=== PATIENT | female | born 1975 | race Caucasian/White ===

== ENCOUNTER 2021-01-01 14:05 | Emergency (ER) | payer BC, OTHER ==
--- NOTE | 2021-01-01 15:11 | EDM.PDOC ---
ED HPI GENERAL MEDICAL PROBLEM - General Chief Complaint: Respiratory Problem Stated Complaint: Covid symptoms Time Seen by Provider: 01/01/21 14:10 Source of Information: Reports: Patient History Limitations: Reports: No Limitations - History of Present Illness INITIAL COMMENTS - FREE TEXT/NARRATIVE: Patient presented to the ED because of of cough and cold, dyspnea since she was diagnosed with Covid. Her oxygen Sat was 95 % on RA but her primary provider sent her to the ED to be tested for PE. - Related Data Allergies Allergy/AdvReac Type Severity Reaction Status Date / Time No Known Allergies Allergy Verified 01/01/21 14:21 Home Meds: Home Meds Azithromycin [Zithromax] 500 mg PO DAILY #5 tab 01/01/21 [Rx] Escitalopram [Lexapro] 10 mg PO DAILY 01/01/21 [History] Lisdexamfetamine [Vyvanse] 30 mg PO DAILY 01/01/21 [History] Naproxen 500 mg PO BID #15 tablet 01/01/21 [Rx] buPROPion HCL [Bupropion Xl] 300 mg PO DAILY 01/01/21 [History] hydroCHLOROthiazide [Hydrochlorothiazide] 25 mg PO DAILY 01/01/21 [History] ED ROS GENERAL - Review of Systems Review Of Systems: See Below Constitutional: Reports: No Symptoms HEENT: Reports: No Symptoms Respiratory: Reports: Shortness of Breath, Cough Cardiovascular: Reports: No Symptoms Endocrine: Reports: No Symptoms GI/Abdominal: Reports: No Symptoms : Reports: No Symptoms Musculoskeletal: Reports: No Symptoms Skin: Reports: No Symptoms Neurological: Reports: No Symptoms Psychiatric: Reports: No Symptoms Hematologic/Lymphatic: Reports: No Symptoms ED EXAM, GENERAL - Physical Exam Exam: See Below Exam Limited By: No Limitations General Appearance: Alert, No Apparent Distress Eye Exam: Bilateral Eye: PERRL Ears: Normal External Exam, Normal Canal, Normal TMs Nose: Normal Inspection, Normal Mucosa, No Blood Throat/Mouth: Normal Inspection, Normal Lips, Normal Teeth, Normal Oropharynx, Normal Voice Head: Atraumatic, Normocephalic Neck: Normal Inspection, Supple, Non-Tender, Full Range of Motion Respiratory/Chest: No Respiratory Distress, Lungs Clear, Normal Breath Sounds, No Accessory Muscle Use, Chest Non-Tender Cardiovascular: Normal Peripheral Pulses, Regular Rate, Rhythm, No Edema, No Gallop, No JVD, No Murmur, No Rub GI/Abdominal: Normal Bowel Sounds, Soft, Non-Tender, No Organomegaly, No Distention, No Abnormal Bruit Back Exam: Normal Inspection, Full Range of Motion Neurological: Alert, Oriented, CN II-XII Intact, Normal Cognition Psychiatric: Normal Affect, Normal Mood Skin Exam: Warm Course - Vital Signs Text/Narrative:: Lab/CXR result was reviewed and discussed with patient Last Recorded V/S: Last Vital Signs Temp 36.6 C 01/01/21 14:05 Pulse 78 01/01/21 15:38 Resp 18 01/01/21 15:38 BP 102/60 01/01/21 15:38 Pulse Ox 97 01/01/21 15:38 - Orders/Labs/Meds Labs: Laboratory Tests 01/01/21 01/01/21 01/01/21 Range/Units 14:35 14:35 14:35 WBC 4.4 (3.0-10.3) x10-3/uL RBC 4.33 (3.60-5.20) x10(6)uL Hgb 12.3 (11.4-15.5) g/dL Hct 38.3 (34.2-48.2) % MCV 88.4 (76.7-100.5) fL MCH 28.4 (23.9-33.9) pg MCHC 32.1 (31.9-34.8) g/dL RDW 12.7 (12.3-16.5) % Plt Count 214 (151-488) x10(3)uL MPV 7.2 (7.1-12.4) fL Neut % (Auto) 74.3 (30.8-76.2) % Lymph % (Auto) 14.6 L (18.4-52.1) % [place] % (Auto) 10.7 (4.4-15.7) % Eos % (Auto) 0.2 L (0.6-8.1) % Baso % (Auto) 0.2 (0.2-1.5) % Neut # (Auto) 3.3 (1.5-6.3) x10-3/uL Lymph # (Auto) 0.6 L (1.0-4.4) x10-3/uL [place] # (Auto) 0.5 (0.3-1.0) x10-3/uL Eos # (Auto) 0.0 (0.0-0.8) x10-3/uL Baso # (Auto) 0.0 (0.0-0.1) x10-3/uL D-Dimer, Quantitative 0.43 (0.0-0.59) mg/LFEU Sodium (135-145) mmol/L Potassium (3.5-5.3) mmol/L Chloride (100-110) mmol/L Carbon Dioxide (21-32) mmol/L BUN (7-18) mg/dL Creatinine (0.55-1.02) mg/dL Est Cr Clr Drug Dosing mL/min Estimated GFR (MDRD) (>60) BUN/Creatinine Ratio (9-20) Glucose (80-116) mg/dL Calcium (8.6-10.2) mg/dL Total Bilirubin (0.1-1.3) mg/dL AST (5-25) IU/L ALT (12-36) U/L Alkaline Phosphatase (56-112) IU/L Troponin I 24.2 (4.0-60.3) pg/mL NT-Pro-B Natriuret Pep (<=125) pg/mL Total Protein (6.0-8.0) g/dL Albumin (3.5-5.2) g/dL Globulin g/dL Albumin/Globulin Ratio 01/01/21 01/01/21 Range/Units 14:35 14:35 WBC (3.0-10.3) x10-3/uL RBC (3.60-5.20) x10(6)uL Hgb (11.4-15.5) g/dL Hct (34.2-48.2) % MCV (76.7-100.5) fL MCH (23.9-33.9) pg MCHC (31.9-34.8) g/dL RDW (12.3-16.5) % Plt Count (151-488) x10(3)uL MPV (7.1-12.4) fL Neut % (Auto) (30.8-76.2) % Lymph % (Auto) (18.4-52.1) % [place] % (Auto) (4.4-15.7) % Eos % (Auto) (0.6-8.1) % Baso % (Auto) (0.2-1.5) % Neut # (Auto) (1.5-6.3) x10-3/uL Lymph # (Auto) (1.0-4.4) x10-3/uL [place] # (Auto) (0.3-1.0) x10-3/uL Eos # (Auto) (0.0-0.8) x10-3/uL Baso # (Auto) (0.0-0.1) x10-3/uL D-Dimer, Quantitative (0.0-0.59) mg/LFEU Sodium 141 (135-145) mmol/L Potassium 4.3 (3.5-5.3) mmol/L Chloride 105 (100-110) mmol/L Carbon Dioxide 30 (21-32) mmol/L BUN 17 (7-18) mg/dL Creatinine 0.8 (0.55-1.02) mg/dL Est Cr Clr Drug Dosing 68.76 mL/min Estimated GFR (MDRD) > 60 (>60) BUN/Creatinine Ratio 21.3 H (9-20) Glucose 87 (80-116) mg/dL Calcium 7.8 L (8.6-10.2) mg/dL Total Bilirubin 0.3 (0.1-1.3) mg/dL AST 27 H (5-25) IU/L ALT 43 H (12-36) U/L Alkaline Phosphatase 72 (56-112) IU/L Troponin I (4.0-60.3) pg/mL NT-Pro-B Natriuret Pep 62 (<=125) pg/mL Total Protein 6.5 (6.0-8.0) g/dL Albumin 3.0 L (3.5-5.2) g/dL Globulin 3.5 g/dL Albumin/Globulin Ratio 0.9 Departure - Departure Time of Disposition: 15:15 Disposition: Home, Self-Care 01 Condition: Good Clinical Impression: Post-COVID syndrome, Pneumonitis - Discharge Information Prescriptions: Naproxen 500 mg PO BID #15 tablet Azithromycin [Zithromax] 500 mg PO DAILY #5 tab Instructions: COVID-19 Frequently Asked Questions, Costochondritis, [id number], Pneumonitis Referrals: Luis Rodríguez MD [Primary Care Provider] - Forms: ED Department Discharge Additional Instructions: please read discharge instructions on post covid syndrome, costochondritis(chest wall pain and inflammation), pneumonitis drink 2 liters of water daily naproxen 500 mg twice daily for 1 week zithromax 500 mg daily for 5 days follow up as needed Sepsis Event Note (ED) - Evaluation Sepsis Screening Result: No Definite Risk
--- NOTE | 2021-01-01 16:23 | CR ---
CHEST ONE VIEW INDICATION: COVID positive one week prior. FINDINGS: An AP upright portable view of the chest was obtained 01/01/21 and revealed infiltration the right mid lung field becoming more consolidated at the lower portion of the lung field and lung base. There is some very minimal infiltrate suggested at the left lung base. The upper lung olivares appeared relatively clear. The heart, mediastinum and bony thorax are unremarkable except for a minimal dextroconcave scoliosis of the mid thoracic spine. IMPRESSION: Bilateral infiltrate, but by far more prominent in the right lower lung field. A process such as COVID-19 could be responsible for this appearance. Correlate clinically. MTDD
== END 2021-01-01 15:39 | disposition home or self-care (01) ==
LOC: FB.ED 14:05
DX: J18.9 Pneumonia, unspecified organism (principal); U09.9 Post COVID-19 condition, unspecified; Z79.899 Other long term (current) drug therapy
CPT/HCPCS: 36415; 71045; 80053; 83880; 84484; 85025; 85379; 99285-25